=== PATIENT | female | born 1990 | race Caucasian/White ===

== ENCOUNTER → 2016-05-09 | Outpatient (CLI) | payer OTHER | LOC: M LAB 06:58 | PROVIDERS: ATTEND Obstetrics & Gynecology | DX: Z34.82 Encounter for supervision of other normal pregnancy, second trimester (principal) ==

== ENCOUNTER → 2016-05-25 | Outpatient (CLI) | payer OTHER ==
--- NOTE | 2016-05-25 19:13 | REP ---
Obstetric sonography: History: Supervision of for anatomy at 28 weeks. Findings: Scanning through the gravid uterus demonstrates a viable single intrauterine gestation in a variable lie. motion is observed and heart rate is recorded at 133 beats per minute. Closed cervical length is 2.7 cm measured transabdominally. There has been appropriate interval growth. Exam quality was inhibited to some degree by patient body habitus. The following anatomic structures are identified and felt to be sonographically unremarkable: cranium, cavum, cerebellum posterior fossa, face and profile, lungs, four-chamber heart, diaphragm, left-sided stomach, abdominal wall cord insertion, kidneys and bladder, upper and lower extremities. Biometry chart: BPD 7.0 cm = 28 weeks 1 day Head circumference 26.1 cm = 28 weeks 3 days Abdominal circumference 24.5 cm = 28 weeks 6 days. Femur length 5.1 cm = 27 weeks 1 day. Humeral length 4.8 cm = 28 weeks 3 days HC/AC ratio normal 1.06, cephalic index normal 0.74, estimated weight 1182 grams 2 pounds 9 ounces 36th percentile for 28 weeks 3 days. Impression: Viable single intrauterine gestation at 28 weeks 1 day by today's composite sonographic criteria. Expected gestational age estimate based on prior sonography is 28 weeks 3 days. EDWARDO by prior sonography 08/14/2016. Signed by Rayray Wilkinson MD 05/26/2016 09:53 A
== END ==
LOC: M RAD 15:38
PROVIDERS: ATTEND Obstetrics & Gynecology
DX: O10.012 Pre-existing essential hypertension complicating pregnancy, second trimester (principal)

== ENCOUNTER → 2016-06-15 | Outpatient (CLI) | payer OTHER ==
--- NOTE | 2016-06-15 11:04 | REP ---
Follow-up obstetric ultrasound for growth in a patient with preexisting essential hypertension. Comparison is 05/25/2016. There is a single intrauterine gestation in a vertex presentation. There is movement and cardiac activity, the heart rate is 139 - 144 beats per minute. The placenta is posterior / fundal with no previa or abruptio with grade 1 maturity. Subjectively the amniotic fluid volume is normal. The amniotic fluid index is 13.0 (8.7 - 24.0). The maternal adnexa and cul-de-sac are unremarkable. By today's measurements gestational age is 32 weeks 4 days with an EDWARDO of 08/06/2016. By the first ultrasound during this gestation gestational age is 31 weeks 3 days. By LMP 31 weeks 3 days. weight is 2065 grams (4 pounds, 8 ounces). This is the 74th percentile for 31 weeks 3 days. Umbilical artery Doppler assessment: SD ratio 2.37 (2.50 - 3.50) Resistive index 0.58 (a 0.59 - 0.75) Diastolic flow velocity 17.2 cm/sec (normal). Signed by Eric Corbin MD 06/15/2016 10:55 A
== END ==
LOC: M RAD 09:30
PROVIDERS: ATTEND Obstetrics & Gynecology
DX: O10.012 Pre-existing essential hypertension complicating pregnancy, second trimester (principal)

== ENCOUNTER → 2016-07-11 | Outpatient (CLI) | payer OTHER ==
--- NOTE | 2016-07-11 11:49 | REP ---
OB ULTRASOUND: Real-time sonographic evaluation of the gravid uterus performed. There is a single living intrauterine gestation. Estimated gestational age 35 weeks 1 day. EDC 08/14/2016. Today's measurements indicate appropriate growth. BPD 88 mm = 35 weeks 5 days, 58th percentile HC 339 mm = 38 weeks 6 days, over 95th percentile AC 328 mm = 36 weeks 5 days, 73rd percentile Femur length 66 mm = 33 weeks 6 days, 32nd percentile HC/AC ratio 1.03 within normal range. Estimated weight 2846 grams, 66th percentile. Cervix is closed and measures 3.1 cm in length. heart rate 153 beats per minute. Amniotic fluid within normal limits. ESTEPHANIA 14.0 within normal range of 7.9-24.9. S/D ratio 2.45 within normal range. RI 0.59 within normal range. SEEN/GROSSLY UNREMARKABLE Lateral ventricles Yes Posterior fossa Yes Upper lip Yes Four-chamber heart No LVOT No RVOT No Stomach Yes Cord insertion No Three vessel cord Yes Kidneys Yes Bladder Yes Spine Yes position: Vertex. Placenta: Posterior and fundal and grade 2 with no previa or abruption. Signed by Eric Lara MD 07/12/2016 04:35 P
== END ==
LOC: M RAD 09:37
PROVIDERS: ATTEND Obstetrics & Gynecology
DX: O10.012 Pre-existing essential hypertension complicating pregnancy, second trimester (principal)

== ENCOUNTER → 2016-07-13 | Outpatient (CLI) | payer OTHER ==
[2016-07-13 10:32] LABS: MEAN CORPUSCULAR HEMOGLOBIN 28.1 pg (27.0-33.0); MEAN CORPUSCULAR HGB CONC 33.5 g/dl (32.0-36.5); MEAN CORPUSCULAR VOLUME 83.8 fl (80.0-96.0); RED CELL DISTRIBUTION WIDTH 14.7 % (11.5-14.5); WHITE BLOOD COUNT 12.1 K/mm3 (4.0-10.0)
[2016-07-13 10:55] LABS: ALT/SGPT 21 U/L (12-78); AST/SGOT 20 U/L (15-37); BILIRUBIN,TOTAL 0.2 MG/DL (0.2-1.0); CREATININE FOR GFR 0.63 MG/DL (0.55-1.02); GLOMERULAR FILTRATION RATE > 60.0 (>60); URIC ACID 4.2 MG/DL (2.6-6.0)
[2016-07-13 11:21] LABS: CREATININE CLEARANCE, URINE 153.7 ML/MIN (75-115); CREATININE, SERUM 0.6 MG/DL (0.6-1.0)
== END ==
LOC: M LAB 09:56
PROVIDERS: ATTEND Obstetrics & Gynecology
DX: O10.013 Pre-existing essential hypertension complicating pregnancy, third trimester (principal)

== ENCOUNTER → 2016-07-16 | Outpatient (REF) | payer OTHER | LOC: M LAB REF 16:45 | PROVIDERS: ATTEND Specialist | DX: O10.013 Pre-existing essential hypertension complicating pregnancy, third trimester (principal) ==

== ENCOUNTER 2016-07-24 21:26 | Inpatient (IN) | payer OTHER ==
[~2016-07-24] VITALS: Ht 167.6 cm; Wt 128.0 kg
[2016-07-24 23:45] LABS: MEAN CORPUSCULAR HEMOGLOBIN 27.3 pg (27.0-33.0); MEAN CORPUSCULAR HGB CONC 32.9 g/dl (32.0-36.5); MEAN CORPUSCULAR VOLUME 82.7 fl (80.0-96.0); RED CELL DISTRIBUTION WIDTH 14.8 % (11.5-14.5); WHITE BLOOD COUNT 12.9 K/mm3 (4.0-10.0)
[2016-07-25] VITALS (47 sets, daily range): BP systolic 88–195; BP diastolic 39–94
[2016-07-25] MEDS ORDERED: EVEN1000 PO (00:25)
[2016-07-25] MEDS ORDERED: METF500T PO (00:25)
[2016-07-25] MEDS ORDERED: PRIL20CA9 PO (00:28)
[2016-07-25] MEDS ORDERED: PRENTAB9 PO (00:28)
[2016-07-25] MEDS ORDERED: TYLE500T78 PO (00:28)
[2016-07-25] MEDS ORDERED: miSOPROStol 50 MCG 1/2 TAB (S0191) PO SCH (00:30)
--- NOTE | 2016-07-25 01:07 | HPE ---
DATE OF ADMISSION: 07/24/2016 26-year-old G2, P1 female at 37-0/7 weeks gestation by last menstrual period (LMP) consistent with eight week ultrasound, estimated date of confinement (EDC) 08/14/2016, presents for labor induction to chronic hypertension. COURSE: The patient initiated care in [place]. She transferred to [place] to [facility] at 23 weeks gestation, on 04/23/2016. Her blood pressure at that visit was 142/76. She had gestational diabetes treated with metformin. She has chronic hypertension and did not require medications during . She had report of testing as well as normal ultrasounds for growth. MEDICAL HISTORY: 1. Obesity. 2. Seizure disorder. 3. Polycystic ovarian syndrome (PCOS). 4. Migraines. 5. Anxiety disorder. SURGICAL HISTORY: LEEP in 2013. ALLERGIES: Allergic to multiple anti-seizure drugs including phenobarbital, Dilantin, Tegretol, Lamictal, and Trileptal. SOCIAL HISTORY: Patient is . She quit cigarettes in 2013. She denies alcohol or drug use. FAMILY HISTORY: Noncontributory. PHYSICAL EXAMINATION: Blood pressure 138/78, weight 295 pounds. HEAD AND NECK: Normal. LUNGS: Clear to auscultation bilaterally. HEART: Regular rate and rhythm. ABDOMEN: Nontender, gravid. heart tones category one. STERILE VAGINAL EXAM: Cervix 3 cm, 80%, -2 station, vertex. EXTREMITIES: Nontender. LABS: Blood type O positive. Rubella immune. RPR nonreactive. Hepatitis B and C negative. Hemoglobin A1c 6.2.GBS negative on 07/16/2016. ASSESSMENT: 26-year-old, G2, P1 female at 37-0/7 weeks gestation with chronic hypertension and gestation diabetes. Patient is admitted for labor induction. Risks of induction were discussed.
[2016-07-25] MEDS ORDERED: LR 1,000 ML IV SCH (05:08)
[2016-07-25] MEDS ORDERED: OXYTOCIN DRIP 30 UNITS in APPROPRIATE DILUENT 1 EA IV SCH (05:15)
[2016-07-25] MEDS ORDERED: ONDANSETRON 4MG/2ML VIAL (J2405) IV ONE (08:00)
[2016-07-25] MEDS ORDERED: FENTANYL 2MCG/ML ROPIVACAINE 0.2% NACL 250 ML CADD As Ordered ONE (13:15)
[2016-07-25] MEDS ORDERED: EPIDURAL/PCA KEYS XX PRN (14:30)
[2016-07-25] MEDS ORDERED: REFRIGERATOR IV KEYS XX PRN (14:30)
[2016-07-25] MEDS ORDERED: FENTANYL/ROPIVACAINE/NACL CADD 250 ML EPIDURAL SCH (14:30)
[2016-07-25] MEDS ORDERED: diphenhydrAMINE INJ 50MG/ML VIAL (J1200) IV PRN (14:30)
[2016-07-25] MEDS ORDERED: ePHEDrine SULFATE 25 MG/5 ML(5MG/ML) SYRINGE IV PRN (14:30)
[2016-07-25] MEDS ORDERED: ONDANSETRON 4MG/2ML VIAL (J2405) IV PRN (14:30)
[2016-07-25] MEDS ORDERED: LACTATED RINGER'S 1000 ML IV PRN (14:30)
[2016-07-25] MEDS ORDERED: EPIDURAL COMMENT XX SCH (14:30)
[2016-07-25] MEDS ORDERED: NALOXONE INJ 0.4 MG/1 ML VIAL (J2310) IV PRN (14:30)
--- NOTE | 2016-07-25 23:56 | DN ---
DATE OF DELIVERY: 07/25/2016 TIME OF : 22:33 GENDER: Male APGARS: 8 and 9 WEIGHT: 3372, or 7 pounds 7 ounces ESTIMATED BLOOD LOSS: 300 mL ANESTHESIA: Epidural. LACERATIONS: None. COUNTS: 5 laparotomy sponges accounted for prior to and after delivery. DELIVERY NOTE: On 07/25/2016, at 22:33, Ms. Sainz, a 26-year-old 2, now para 2, had a spontaneous vaginal delivery of a liveborn male infant, Apgars 8 and 9, weight 3372 gram, or 7 pounds 7 ounces. Head was delivered occiput anterior (OA) over an intact perineum followed by delivery of the anterior and posterior shoulders and corpus. Infant was handed to mother with a good cry. Cord was clamped times two, was cut by the father of the baby under my direction. Cord blood was then obtained. Placenta was drained and delivered grossly intact. A premixed bag of 500 mL of normal saline with 30 units of Pitocin was bolused along with uterine massage until the uterus was firm. On inspection, the cervix, vagina, and perineum were grossly intact and hemostatic. Mother and baby recovered in stable condition. The couple decided to name their son Skyler.
[2016-07-26] MEDS ORDERED: OXYTOCIN DRIP 30 UNITS in APPROPRIATE DILUENT 1 EA IV SCH (00:54)
[2016-07-26] MEDS ORDERED: DOCUSATE SODIUM 100 MG CAP PO PRN (01:00)
[2016-07-26] MEDS ORDERED: MEASLES,MUMPS,RUBELLA VACCINE INJ (MMR-II) (90707) SC SCH (01:00)
[2016-07-26] MEDS ORDERED: DIBUCAINE 1% OINTMENT 30GM TOP PRN (01:00)
[2016-07-26] MEDS ORDERED: RHOGAM 300 MCG (1500 IU) INJ (J2790) IM SCH (01:00)
[2016-07-26] MEDS ORDERED: ACETAMINOPHEN 500 MG TAB PO PRN (01:00)
[2016-07-26] MEDS ORDERED: METHYLERGONOVINE MALEATE 0.2 MG TAB PO PRN (01:00)
[2016-07-26] MEDS ORDERED: MOM 30ML SUSPENSION UDC PO PRN (01:00)
[2016-07-26 01:45] VITALS: BP 154/61
[2016-07-26 02:00] VITALS: BP 154/61
[2016-07-26 05:41] VITALS: BP 130/72
[2016-07-26] MEDS: IBUPROFEN 800 MG TAB PO PRN ×3 (06:26→22:27)
[2016-07-26] MEDS: PRENATAL VITAMIN TAB PO SCH (08:40)
[2016-07-26 18:14] VITALS: BP 138/82
[2016-07-26] MEDS ORDERED: PERCOCET 5MG/325MG TAB PO PRN (18:15)
--- NOTE | 2016-07-26 21:29 | PAIN ---
DICTATOR STATED TO DISREGARD THIS DICTATION. DICTATION ENDED AT 0:05.
[2016-07-27 06:19] VITALS: BP 138/82
[2016-07-27] MEDS ORDERED: IBUP600T26 PO (07:30)
[2016-07-27] MEDS ORDERED: OXYC1TAB23 PO (07:30)
[2016-07-27] MEDS: PRENATAL VITAMIN TAB PO SCH (07:52)
[2016-07-27] MEDS ORDERED: ACET50TA PO (08:03)
[2016-07-27] MEDS ORDERED: IBUP-1114 PO (08:03)
[2016-07-27] MEDS ORDERED: COLA100C PO (08:04)
[2016-07-27] MEDS: IBUPROFEN 800 MG TAB PO PRN (13:40)
== END 2016-07-27 20:00 | disposition home or self-care (01) | DRG 774 ==
LOC: M LDI 21:26 → M OBS 07-26 00:53
PROVIDERS: ADMIT Specialist; ATTEND Obstetrics & Gynecology
PROC: 3E0P7GC Introduction of Other Therapeutic Substance into Female Reproductive, Via Natural or Artificial Opening (ICD-10-PCS; 2016-07-24)
PROC: 10E0XZZ Delivery of Products of Conception, External Approach (ICD-10-PCS; principal; 2016-07-25)
DX: O10.02 Pre-existing essential hypertension complicating childbirth (principal); Z68.41 Body mass index [BMI] 40.0-44.9, adult; O24.415 Gestational diabetes mellitus in pregnancy, controlled by oral hypoglycemic drugs; Z3A.37 37 weeks gestation of pregnancy; O99.214 Obesity complicating childbirth; E66.9 Obesity, unspecified; E28.2 Polycystic ovarian syndrome; O99.284 Endocrine, nutritional and metabolic diseases complicating childbirth; K21.9 Gastro-esophageal reflux disease without esophagitis; O99.62 Diseases of the digestive system complicating childbirth; Z37.0 Single live birth; Z79.84 Long term (current) use of oral hypoglycemic drugs

== ENCOUNTER → 2016-10-15 | Outpatient (CLI) | payer OTHER ==
[~2016-10-15] MED LIST: ACET50TA PO; COLA100C3 PO; EVEN1000 PO; IBUP-1114 PO; IBUP600T26 PO; METF500T PO; NAPR500T2 PO; OXYC1TAB23 PO; PRENTAB9 PO; PRIL20CA9 PO; TYLE500T78 PO
== END ==
LOC: M SMT 14:05
PROVIDERS: ATTEND Family Medicine
DX: N91.1 Secondary amenorrhea (principal)

== ENCOUNTER → 2016-10-18 | Outpatient (CLI) | payer OTHER ==
[2016-10-18 18:59] LABS: BASO # 0.1 K/mm3 (0.0-0.2); BASO % 0.8 % (0.0-1.0); EOS # 0.3 K/mm3 (0.0-0.50); EOS % 3.1 % (0.0-3.0); LARGE UNSTAINED CELL # 0.1 K/mm3 (0.0-0.4); LARGE UNSTAINED CELL % 1.2 % (0.0-4.0); LYMPH # 2.2 K/mm3 (1.5-6.5); LYMPH % 25.4 % (24.0-44.0); MEAN CORPUSCULAR HEMOGLOBIN 27.1 pg (27.0-33.0); MEAN CORPUSCULAR HGB CONC 32.7 g/dl (32.0-36.5); MEAN CORPUSCULAR VOLUME 82.8 fl (80.0-96.0); MONO # 0.5 K/mm3 (0.0-0.8); MONO % 5.5 % (0.0-5.0); NEUTROPHILS # 5.5 K/mm3 (1.8-7.7); PLATELET COUNT, AUTOMATED 370 k/mm3 (150-450); RED CELL DISTRIBUTION WIDTH 14.7 % (11.5-14.5); WHITE BLOOD COUNT 8.6 K/mm3 (4.0-10.0)
[2016-10-18 19:15] LABS: ALBUMIN 3.6 GM/DL (3.2-5.2); ALBUMIN/GLOBULIN RATIO 0.97 (1.00-1.93); ALKALINE PHOSPHATASE 154 U/L (45-117); ALT/SGPT 461 U/L (12-78); AMYLASE 420 U/L (25-115); ANION GAP 7 MEQ/L (8-16); AST/SGOT 499 U/L (15-37); BILIRUBIN,TOTAL 0.4 MG/DL (0.2-1.0); BLOOD UREA NITROGEN 11 MG/DL (7-18); CALCIUM LEVEL 9.1 MG/DL (8.5-10.1); CARBON DIOXIDE LEVEL 27 MEQ/L (21-32); CHLORIDE LEVEL 104 MEQ/L (98-107); CREATININE FOR GFR 0.67 MG/DL (0.55-1.02); GLOMERULAR FILTRATION RATE > 60.0 (>60); GLUCOSE, FASTING 137 MG/DL (70-105); POTASSIUM SERUM 4.3 MEQ/L (3.5-5.1); SODIUM LEVEL 138 MEQ/L (136-145); TOTAL PROTEIN 7.3 GM/DL (6.4-8.2)
== END ==
LOC: M SMT 14:55
PROVIDERS: ATTEND Physician Assistant Medical
DX: R10.30 Lower abdominal pain, unspecified (principal)

== ENCOUNTER 2016-10-19 12:27 | Emergency (ER) | payer OTHER ==
[~2016-10-19] VITALS: Ht 167.6 cm; Wt 126.1 kg
[~2016-10-19 12:27] MED LIST changes: -NAPR500T2 PO
[2016-10-19] MEDS ORDERED: NAPR500T2 PO (12:42)
[2016-10-19] MEDS ORDERED: NS 1,000 ML IV ONE (14:00)
[2016-10-19 14:32] LABS: BASO # 0.1 K/mm3 (0.0-0.2); BASO % 1.1 % (0.0-1.0); EOS # 0.4 K/mm3 (0.0-0.50); EOS % 3.7 % (0.0-3.0); LARGE UNSTAINED CELL # 0.1 K/mm3 (0.0-0.4); LARGE UNSTAINED CELL % 1.2 % (0.0-4.0); LYMPH # 3.6 K/mm3 (1.5-6.5); LYMPH % 31.3 % (24.0-44.0); MEAN CORPUSCULAR HEMOGLOBIN 27.4 pg (27.0-33.0); MEAN CORPUSCULAR HGB CONC 33.5 g/dl (32.0-36.5); MEAN CORPUSCULAR VOLUME 81.7 fl (80.0-96.0); MONO # 0.6 K/mm3 (0.0-0.8); MONO % 5.4 % (0.0-5.0); NEUTROPHILS # 6.3 K/mm3 (1.8-7.7); NEUTROPHILS % 57.3 % (36.0-66.0); PLATELET COUNT, AUTOMATED 378 k/mm3 (150-450); RED CELL DISTRIBUTION WIDTH 15.1 % (11.5-14.5)
[2016-10-19 15:06] LABS: ALBUMIN 3.6 GM/DL (3.2-5.2); ALBUMIN/GLOBULIN RATIO 0.84 (1.00-1.93); ALKALINE PHOSPHATASE 132 U/L (45-117); ALT/SGPT 302 U/L (12-78); AMYLASE 41 U/L (25-115); ANION GAP 7 MEQ/L (8-16); AST/SGOT 110 U/L (15-37); BILIRUBIN,DIRECT < 0.1 MG/DL (0.0-0.2); BILIRUBIN,TOTAL 0.2 MG/DL (0.2-1.0); BLOOD UREA NITROGEN 9 MG/DL (7-18); CALCIUM LEVEL 9.2 MG/DL (8.5-10.1); CARBON DIOXIDE LEVEL 25 MEQ/L (21-32); CHLORIDE LEVEL 108 MEQ/L (98-107); CREATININE FOR GFR 0.57 MG/DL (0.55-1.02); GLOMERULAR FILTRATION RATE > 60.0 (>60); GLUCOSE, FASTING 82 MG/DL (70-105); SODIUM LEVEL 140 MEQ/L (136-145); TOTAL PROTEIN 7.9 GM/DL (6.4-8.2)
[2016-10-19] MEDS ORDERED: ISOVUE-370 76% 100ML VIAL (Q9967) As Ordered ONE (15:07)
--- NOTE | 2016-10-19 16:04 | REP ---
CT ABDOMEN AND PELVIS WITH IV CONTRAST: TECHNIQUE: Axial contrast enhanced images from the lung bases to the pubic symphysis using 100 mL Isovue 370 intravenous contrast material with multiplanar reformations. Visualized lung bases are clear. The liver demonstrates diffuse fatty infiltration. There is a 5 mm gallstone in the gallbladder without definite inflammatory changes. No biliary dilatation is visualized. The spleen, adrenals, pancreas, and kidneys are unremarkable. There is no hydronephrosis. There is no abdominal aortic aneurysm. There is no adenopathy. There is no free air or free fluid. There is no bowel wall thickening. There is no evidence of appendicitis. There is no pelvic mass. Urinary bladder is not well distended and not well evaluated. IMPRESSION: Diffuse fatty infiltration of the liver. There is a 5 mm gallstone in the gallbladder. No biliary dilatation. No free air or free fluid. Pancreas appears unremarkable, but it should be noted that a negative CT of the pancreas does not exclude pancreatitis. Signed by Eric Lara MD 10/19/2016 05:26 P
[2016-10-19 16:30] VITALS: BP 138/76
== END 2016-10-19 16:33 | disposition home or self-care (01) ==
LOC: M ED 13:45
DX: K80.70 Calculus of gallbladder and bile duct without cholecystitis without obstruction (principal); G89.29 Other chronic pain; K21.9 Gastro-esophageal reflux disease without esophagitis; F99 Mental disorder, not otherwise specified; Z79.899 Other long term (current) drug therapy; Z88.8 Allergy status to other drugs, medicaments and biological substances; Z87.891 Personal history of nicotine dependence
CPT/HCPCS: 36415; 74177; 80048; 80076; 81001; 81025; 82150; 83690; 85025; 99284; Q9967

== ENCOUNTER 2016-12-26 18:35 | Emergency (ER) | payer OTHER ==
[~2016-12-26] VITALS: Ht 167.6 cm; Wt 128.2 kg
[~2016-12-26 18:35] MED LIST changes: -COLA100C3 PO; +COLA100C5 PO; +IBUP-1022 PO; -IBUP600T26 PO; -METF500T PO; +METF500T13 PO; +NAPR500T3 PO
[2016-12-26] MEDS ORDERED: ZOFR8TAB PO (18:47)
[2016-12-26] MEDS ORDERED: NS 1,000 ML IV ONE (21:00)
[2016-12-26] MEDS ORDERED: GASTROGRAFIN SOLUTION 30ML (Q9963) PO ONE ×2 (21:15→21:45)
[2016-12-26 21:37] LABS: BASO # 0.1 K/mm3 (0.0-0.2); BASO % 1.1 % (0.0-1.0); EOS # 0.3 K/mm3 (0.0-0.50); EOS % 2.3 % (0.0-3.0); LARGE UNSTAINED CELL # 0.2 K/mm3 (0.0-0.4); LARGE UNSTAINED CELL % 1.5 % (0.0-4.0); LYMPH # 4.4 K/mm3 (1.5-6.5); LYMPH % 30.6 % (24.0-44.0); MEAN CORPUSCULAR HEMOGLOBIN 27.9 pg (27.0-33.0); MEAN CORPUSCULAR HGB CONC 33.8 g/dl (32.0-36.5); MEAN CORPUSCULAR VOLUME 82.5 fl (80.0-96.0); MONO # 0.7 K/mm3 (0.0-0.8); MONO % 4.8 % (0.0-5.0); NEUTROPHILS # 8.1 K/mm3 (1.8-7.7); NEUTROPHILS % 59.7 % (36.0-66.0); PLATELET COUNT, AUTOMATED 405 k/mm3 (150-450); RED CELL DISTRIBUTION WIDTH 14.7 % (11.5-14.5); WHITE BLOOD COUNT 13.6 K/mm3 (4.0-10.0)
[2016-12-26 22:00] LABS: ALBUMIN 3.5 GM/DL (3.2-5.2); ALBUMIN/GLOBULIN RATIO 0.83 (1.00-1.93); ALKALINE PHOSPHATASE 100 U/L (45-117); ALT/SGPT 55 U/L (12-78); ANION GAP 9 MEQ/L (8-16); AST/SGOT 31 U/L (15-37); BILIRUBIN,DIRECT < 0.1 MG/DL (0.0-0.2); BILIRUBIN,TOTAL 0.2 MG/DL (0.2-1.0); BLOOD UREA NITROGEN 9 MG/DL (7-18); CALCIUM LEVEL 9.1 MG/DL (8.5-10.1); CARBON DIOXIDE LEVEL 25 MEQ/L (21-32); CHLORIDE LEVEL 106 MEQ/L (98-107); CREATININE FOR GFR 0.71 MG/DL (0.55-1.02); GLOMERULAR FILTRATION RATE > 60.0 (>60); GLUCOSE, FASTING 125 MG/DL (70-105); POTASSIUM SERUM 4.2 MEQ/L (3.5-5.1); SODIUM LEVEL 140 MEQ/L (136-145); TOTAL PROTEIN 7.7 GM/DL (6.4-8.2)
[2016-12-26 22:39] VITALS: BP 170/79
[2016-12-26] MEDS ORDERED: ISOVUE-370 76% 100ML VIAL (Q9967) As Ordered ONE (22:46)
--- NOTE | 2016-12-26 23:30 | REPUSA ---
CT of the abdomen and pelvis with contrast Clinical statement: Pain. Bloody stools. Technique: Multiple axial CT images were obtained from the base of the lungs through the floor of the pelvis utilizing 5 mm axial slices after administration of nonionic intravenous contrast. Coronal an d sagittal reconstructions were also obtained. Comparison: 10/19/2016. Findings: Chest: The visualized lung bases are clear. Abdomen: The spleen, pancreas, kidneys, and adrenal glands are unremarkable. Several small gallstones fill the gallbladder. No pericholecystic inflammatory changes are seen. The liver is enlarged, measu ring 31.5 cm. Diffuse low attenuation of the hepatic parenchyma is appreciated. The aorta is within n ormal limits. There is no evidence of abdominal lymphadenopathy or ascites. Pelvis: The bowel is unremarkable, with no obstructive or inflammatory changes. The appendix is edgar l. The urinary bladder is within normal limits. The other pelvic structures appear grossly intact. Th ere is no evidence of pelvic lymphadenopathy or ascites. Bones: There are no suspicious osseous abnormalities seen. Impression: 1. No obstructive or inflammatory bowel changes. 2. Cholelithiasis without evidence of acute cholecystitis. 3. Hepatomegaly, with diffuse fatty infiltration of the liver. 4. Overall, no significant interval change.
== END 2016-12-26 23:41 | disposition home or self-care (01) ==
LOC: M ED 18:35
DX: K64.4 Residual hemorrhoidal skin tags (principal)
CPT/HCPCS: 74177; 80048; 80076; 81025; 83690; 85025; 96360; 96361; 99284; Q9963; Q9967

== ENCOUNTER → 2016-12-27 | Outpatient (CLI) | payer OTHER ==
[~2016-12-27] MED LIST changes: +ZOFR8TAB PO
[2016-12-27 13:18] LABS: CONTROL LINE HCG INT CTR LINE PRESENT
== END ==
LOC: M SMT 10:38
PROVIDERS: ATTEND Physician Assistant Medical
DX: Z32.00 Encounter for pregnancy test, result unknown (principal)

== ENCOUNTER → 2017-05-01 | Outpatient (CLI) | payer OTHER ==
[2017-05-01 17:07] LABS: MEAN CORPUSCULAR HEMOGLOBIN 27.4 pg (27.0-33.0); MEAN CORPUSCULAR HGB CONC 32.8 g/dl (32.0-36.5); MEAN CORPUSCULAR VOLUME 83.5 fl (80.0-96.0); PLATELET COUNT, AUTOMATED 415 10^3/uL (150-450); RED CELL DISTRIBUTION WIDTH 13.8 % (11.5-14.5); WHITE BLOOD COUNT 13.1 10^3/uL (4.0-10.0)
[2017-05-01 17:19] LABS: ESTIMATED AVERAGE GLUCOSE 160 MG/DL (60-110)
[2017-05-01 19:07] LABS: PERCENT SATURATION 8.6 % (13.2-45.0); TOTAL IRON BINDING CAPACITY 428 UG/DL (250-450)
== END ==
LOC: M SMT 15:43
DX: Z00.00 Encounter for general adult medical examination without abnormal findings (principal); N92.0 Excessive and frequent menstruation with regular cycle
CPT/HCPCS: 83550

== ENCOUNTER → 2017-05-20 | Outpatient (REF) | payer OTHER | LOC: M LAB REF 19:27 | DX: Z12.4 Encounter for screening for malignant neoplasm of cervix (principal) ==

== ENCOUNTER → 2017-06-21 | Outpatient (REF) | payer OTHER | LOC: M LAB REF 15:35 | DX: J06.9 Acute upper respiratory infection, unspecified (principal) | CPT/HCPCS: 87633 ==

== ENCOUNTER → 2017-06-21 | Outpatient (CLI) | payer OTHER ==
[2017-06-21 17:42] LABS: HCG, SERUM QUANTITATIVE < 1.0 MIU/ML
== END ==
LOC: M SMT 13:03
DX: N91.1 Secondary amenorrhea (principal); J06.9 Acute upper respiratory infection, unspecified
CPT/HCPCS: 84702

== ENCOUNTER → 2017-09-18 | Outpatient (CLI) | payer OTHER ==
[2017-09-18 14:26] LABS: ESTIMATED AVERAGE GLUCOSE 177 MG/DL (60-110); HEMOGLOBIN A1c 7.8 %
== END ==
LOC: M SMT 09:50
DX: E10.65 Type 1 diabetes mellitus with hyperglycemia (principal)
CPT/HCPCS: 83036

== ENCOUNTER → 2017-10-15 | Outpatient (CLI) | payer OTHER ==
[2017-10-15 12:25] LABS: HCG, SERUM QUANTITATIVE < 1.0 MIU/ML; LUTEINIZING HORMONE 6.8 mIU/mL
[2017-10-15 12:25] LABS: PROGESTERONE 0.3 NG/ML
[2017-10-15 12:26] LABS: FOLLICLE STIMULATING HORMONE 5.6 mIU/mL
== END ==
LOC: M SMT 10:11
DX: E28.9 Ovarian dysfunction, unspecified (principal)

== ENCOUNTER → 2017-12-27 | Outpatient (CLI) | payer OTHER ==
[2017-12-27 15:12] LABS: ESTIMATED AVERAGE GLUCOSE 183 MG/DL (60-110)
== END ==
LOC: M SMT 08:18
DX: E11.9 Type 2 diabetes mellitus without complications (principal)

== ENCOUNTER → 2018-01-15 | Outpatient (REF) | payer OTHER | LOC: M LAB REF 17:14 | DX: N76.0 Acute vaginitis (principal) | CPT/HCPCS: 87186 ==

== ENCOUNTER → 2018-03-20 | Outpatient (CLI) | payer OTHER ==
[2018-03-20 14:36] LABS: CONTROL LINE HCG INT CTR LINE PRESENT; HCG, SERUM QUALITATIVE NEGATIVE (NEGATIVE)
== END ==
LOC: M SMT 09:31
DX: N92.6 Irregular menstruation, unspecified (principal)
CPT/HCPCS: 84703

== ENCOUNTER → 2018-04-06 | Outpatient (CLI) | payer OTHER ==
[2018-04-06 17:37] LABS: ALBUMIN 3.7 GM/DL (3.2-5.2); ALBUMIN/GLOBULIN RATIO 0.93 (1.00-1.93); ALKALINE PHOSPHATASE 101 U/L (45-117); ALT/SGPT 56 U/L (12-78); ANION GAP 8 MEQ/L (8-16); AST/SGOT 30 U/L (7-37); BILIRUBIN,TOTAL 0.2 MG/DL (0.2-1.0); BLOOD UREA NITROGEN 8 MG/DL (7-18); CALCIUM LEVEL 8.9 MG/DL (8.5-10.1); CARBON DIOXIDE LEVEL 27 MEQ/L (21-32); CHLORIDE LEVEL 106 MEQ/L (98-107); CREATININE FOR GFR 0.73 MG/DL (0.55-1.30); GLOMERULAR FILTRATION RATE > 60.0 (>60); GLUCOSE, FASTING 101 MG/DL (70-100); POTASSIUM SERUM 4.3 MEQ/L (3.5-5.1); SODIUM LEVEL 141 MEQ/L (136-145); TOTAL PROTEIN 7.7 GM/DL (6.4-8.2)
[2018-04-06 17:40] LABS: ESTIMATED AVERAGE GLUCOSE 166 MG/DL (60-110); HEMOGLOBIN A1c 7.4 %
== END ==
LOC: M WUC 15:11
DX: E11.65 Type 2 diabetes mellitus with hyperglycemia (principal)
CPT/HCPCS: 80053

== ENCOUNTER → 2018-06-10 | Outpatient (REF) | payer OTHER ==
[~2018-06-10] MED LIST changes: -ACET50TA PO; +MAPA500T2 PO; +NAPR-885 PO; -NAPR500T3 PO; -ZOFR8TAB PO; +ZOFR8TAB24 PO
== END ==
LOC: M LAB REF 17:05
PROVIDERS: ATTEND Physician Assistant
DX: N76.0 Acute vaginitis (principal)

== ENCOUNTER → 2018-06-17 | Outpatient (REF) | payer OTHER | LOC: M SFHCLERA 18:41 | PROVIDERS: ATTEND Physician Assistant | DX: R50.9 Fever, unspecified (principal) ==

== ENCOUNTER → 2018-07-21 | Outpatient (CLI) | payer OTHER ==
[2018-07-21 20:43] LABS: BLOOD UREA NITROGEN 11 MG/DL (7-18); CALCIUM LEVEL 8.6 MG/DL (8.5-10.1); CARBON DIOXIDE LEVEL 24 MEQ/L (21-32); CHLORIDE LEVEL 105 MEQ/L (98-107); CHOLESTEROL LEVEL 212 MG/DL (<200); CHOLESTEROL RISK RATIO 7.066 (<5); CREATININE FOR GFR 0.82 MG/DL (0.55-1.30); FREE T4 1.09 NG/DL (0.76-1.46); GLOMERULAR FILTRATION RATE > 60.0 (>60); GLUCOSE, FASTING 157 MG/DL (70-100); HDL CHOLESTEROL 30 MG/DL (>40); NON-HDL-C 182 MG/DL; POTASSIUM SERUM 4.3 MEQ/L (3.5-5.1); SODIUM LEVEL 137 MEQ/L (136-145); TRIGLYCERIDES LEVEL 689 MG/DL (<150)
[2018-07-21 20:50] LABS: HEMOGLOBIN A1c 7.5 %
== END ==
LOC: M LRY 15:30
PROVIDERS: ATTEND Physician Assistant
DX: Z00.00 Encounter for general adult medical examination without abnormal findings (principal); E11.65 Type 2 diabetes mellitus with hyperglycemia; E66.01 Morbid (severe) obesity due to excess calories

== ENCOUNTER → 2018-08-05 | Outpatient (CLI) | payer OTHER ==
[2018-08-05 20:23] LABS: HCG, SERUM QUANTITATIVE < 1.0 MIU/ML
[2018-08-05 20:30] LABS: PROGESTERONE 0.34 NG/ML
== END ==
LOC: M LRY 19:07
PROVIDERS: ATTEND Obstetrics & Gynecology Reproductive Endocrinology
DX: Z32.00 Encounter for pregnancy test, result unknown (principal); Z3A.00 Weeks of gestation of pregnancy not specified

== ENCOUNTER → 2018-08-08 | Outpatient (CLI) | payer OTHER ==
[2018-08-08 08:20] LABS: HCG, SERUM QUANTITATIVE < 1.0 MIU/ML
--- NOTE | 2018-08-08 08:48 | REP ---
Transvaginal pelvic sonography: History: infertility. Follicle study. Findings: Uterine dimensions today are normal at 7.9 x 3.1 x 4.8 cm. Endometrial stripe is 0.4 cm thick. There is a tiny echogenic focus in the posterior myometrium 3 mm in size. No free fluid. Right ovarian dimensions are 4.0 x 4.2 x 3.9 cm. There are no follicles over a centimeter in within the right ovary. There is a complex cyst at the right ovary 3.3 x 2.8 x 2.3 cm in overall dimension. In addition, the right ovary contains 10 cysts or follicles ranging in size from 0.3-0.9 cm. The left ovaries dimensions are 4.4 x 3.3 x 1/2 cm. There are two follicles in the left ovary measuring 2.8 x 2.1 and 1.1 x 0.7 cm. In addition, the left ovary contains 25 follicles ranging in size from 0.3-0.9 cm. Impression: Ovarian follicle study as above. Electronically Signed by Rayray Wilkinson MD 08/08/2018 08:40 A
[2018-08-08 09:36] LABS: ESTRADIOL 33.5 PG/ML; FOLLICLE STIMULATING HORMONE 5.4 mIU/mL; LUTEINIZING HORMONE 4.7 mIU/mL; PROGESTERONE 0.29 NG/ML
== END ==
LOC: M RAD 07:14
PROVIDERS: ATTEND Obstetrics & Gynecology Reproductive Endocrinology
DX: N83.201 Unspecified ovarian cyst, right side (principal)

== ENCOUNTER → 2018-08-15 | Outpatient (CLI) | payer OTHER ==
[2018-08-15 20:39] LABS: HCG, SERUM QUANTITATIVE < 1.0 MIU/ML
[2018-08-15 20:49] LABS: PROGESTERONE 0.21 NG/ML
== END ==
LOC: M LRY 17:58
PROVIDERS: ATTEND Obstetrics & Gynecology Reproductive Endocrinology
DX: Z32.00 Encounter for pregnancy test, result unknown (principal); Z3A.00 Weeks of gestation of pregnancy not specified

== ENCOUNTER → 2018-09-01 | Outpatient (CLI) | payer OTHER ==
[2018-09-01 11:57] LABS: HCG, SERUM QUANTITATIVE < 1.0 MIU/ML
[2018-09-01 12:04] LABS: PROGESTERONE 0.55 NG/ML
== END ==
LOC: M LRY 09:29
PROVIDERS: ATTEND Obstetrics & Gynecology Reproductive Endocrinology
DX: Z32.00 Encounter for pregnancy test, result unknown (principal); Z3A.00 Weeks of gestation of pregnancy not specified

== ENCOUNTER → 2018-09-02 | Outpatient (CLI) | payer OTHER ==
--- NOTE | 2018-09-03 07:21 | REP ---
CHEST, TWO VIEWS: Two views of the chest are performed. There may be some mild patchy infiltrate in the right lower lobe. Left lung appears clear. The heart is normal in size. Mediastinal silhouette is unremarkable. IMPRESSION: Possible mild patchy right lower lobe infiltrate. Electronically Signed by Eric Lara MD 09/03/2018 04:55 P
== END ==
LOC: M LRY 19:39
PROVIDERS: ATTEND Physician Assistant
DX: R05 Cough (principal); R06.02 Shortness of breath
CPT/HCPCS: 71046; 87070; 94640; G0463

== ENCOUNTER → 2018-09-03 | Outpatient (CLI) | payer OTHER ==
[2018-09-03 11:38] LABS: HCG, SERUM QUANTITATIVE < 1.0 MIU/ML
[2018-09-03 11:51] LABS: PROGESTERONE 0.21 NG/ML
== END ==
LOC: M LRY 09:38
PROVIDERS: ATTEND Obstetrics & Gynecology Reproductive Endocrinology
DX: Z32.00 Encounter for pregnancy test, result unknown (principal); Z3A.00 Weeks of gestation of pregnancy not specified

== ENCOUNTER → 2018-09-17 | Outpatient (CLI) | payer OTHER ==
[2018-09-17 16:56] LABS: HCG, SERUM QUANTITATIVE < 1.0 MIU/ML
[2018-09-17 17:05] LABS: PROGESTERONE 0.77 NG/ML
== END ==
LOC: M LRY 13:18
PROVIDERS: ATTEND Obstetrics & Gynecology Reproductive Endocrinology
DX: Z32.00 Encounter for pregnancy test, result unknown (principal); Z3A.00 Weeks of gestation of pregnancy not specified

== ENCOUNTER → 2018-10-03 | Outpatient (CLI) | payer OTHER ==
[2018-10-03 17:03] LABS: HCG, SERUM QUANTITATIVE < 1.0 MIU/ML
[2018-10-03 17:10] LABS: PROGESTERONE 0.21 NG/ML
== END ==
LOC: M LRY 12:38
PROVIDERS: ATTEND Obstetrics & Gynecology Reproductive Endocrinology
DX: Z32.00 Encounter for pregnancy test, result unknown (principal)

== ENCOUNTER → 2018-10-09 | Outpatient (CLI) | payer OTHER ==
[2018-10-09 12:17] LABS: HCG, SERUM QUANTITATIVE < 1.0 MIU/ML
[2018-10-09 12:24] LABS: PROGESTERONE 0.21 NG/ML
== END ==
LOC: M LRY 10:13
PROVIDERS: ATTEND Obstetrics & Gynecology Reproductive Endocrinology
DX: Z32.00 Encounter for pregnancy test, result unknown (principal); Z3A.00 Weeks of gestation of pregnancy not specified

== ENCOUNTER → 2018-10-15 | Outpatient (CLI) | payer OTHER ==
[2018-10-15 12:37] LABS: HCG, SERUM QUANTITATIVE < 1.0 MIU/ML
[2018-10-15 12:45] LABS: PROGESTERONE 0.21 NG/ML
== END ==
LOC: M LRY 10:32
PROVIDERS: ATTEND Obstetrics & Gynecology Reproductive Endocrinology
DX: Z32.00 Encounter for pregnancy test, result unknown (principal)

== ENCOUNTER → 2018-10-21 | Outpatient (REF) | payer OTHER | LOC: M SFHCLERA 10:46 | PROVIDERS: ATTEND Physician Assistant | DX: J02.9 Acute pharyngitis, unspecified (principal) ==

== ENCOUNTER → 2018-10-28 | Outpatient (CLI) | payer OTHER ==
[~2018-10-28] MED LIST changes: +IBUP80TA PO; +LANTINJ4 SC; +PREN29TA4 PO; +TYLETAB14 PO
[2018-10-28 12:09] LABS: BLOOD UREA NITROGEN 9 MG/DL (7-18); CARBON DIOXIDE LEVEL 26 MEQ/L (21-32); CHLORIDE LEVEL 105 MEQ/L (98-107); CREATININE FOR GFR 0.56 MG/DL (0.55-1.30); GLOMERULAR FILTRATION RATE > 60.0 (>60); GLUCOSE, FASTING 103 MG/DL (70-100); POTASSIUM SERUM 4.3 MEQ/L (3.5-5.1); SODIUM LEVEL 138 MEQ/L (136-145)
[2018-10-28 14:22] LABS: HEMOGLOBIN A1c 7.9 %
== END ==
LOC: M LRY 09:57
PROVIDERS: ATTEND Family Medicine
DX: E11.65 Type 2 diabetes mellitus with hyperglycemia (principal)

== ENCOUNTER → 2018-10-30 | Outpatient (CLI) | payer OTHER ==
[2018-10-30 16:14] LABS: HCG, SERUM QUANTITATIVE < 1.0 MIU/ML
[2018-10-30 16:27] LABS: PROGESTERONE 0.21 NG/ML
== END ==
LOC: M LRY 10:26
PROVIDERS: ATTEND Obstetrics & Gynecology Reproductive Endocrinology
DX: Z32.00 Encounter for pregnancy test, result unknown (principal); Z3A.00 Weeks of gestation of pregnancy not specified

== ENCOUNTER → 2018-11-03 | Outpatient (CLI) | payer OTHER ==
[2018-11-03 17:54] LABS: HCG, SERUM QUANTITATIVE < 1.0 MIU/ML
[2018-11-03 18:02] LABS: PROGESTERONE 0.21 NG/ML
== END ==
LOC: M LRY 14:52
PROVIDERS: ATTEND Obstetrics & Gynecology Reproductive Endocrinology
DX: Z32.00 Encounter for pregnancy test, result unknown (principal); Z3A.00 Weeks of gestation of pregnancy not specified

== ENCOUNTER → 2018-12-09 | Outpatient (CLI) | payer OTHER ==
[2018-12-09 13:31] LABS: PROGESTERONE 0.21 NG/ML
== END ==
LOC: M LRY 09:17
PROVIDERS: ATTEND Obstetrics & Gynecology Reproductive Endocrinology
DX: Z32.00 Encounter for pregnancy test, result unknown (principal)

== ENCOUNTER → 2018-12-11 | Outpatient (CLI) | payer OTHER ==
[2018-12-11 14:29] LABS: ESTRADIOL 58.2 PG/ML; PROGESTERONE 0.21 NG/ML
== END ==
LOC: M LRY 10:17
PROVIDERS: ATTEND Obstetrics & Gynecology Reproductive Endocrinology
DX: E28.9 Ovarian dysfunction, unspecified (principal)

== ENCOUNTER → 2018-12-18 | Outpatient (CLI) | payer OTHER ==
[2018-12-18 12:15] LABS: TOTAL 25(OH) VITAMIN D 27.4 NG/ML (30.0-100.0)
== END ==
LOC: M LAB 10:58
PROVIDERS: ATTEND Obstetrics & Gynecology Reproductive Endocrinology
DX: P02.1 Newborn affected by other forms of placental separation and hemorrhage (principal)

== ENCOUNTER → 2018-12-22 | Outpatient (CLI) | payer OTHER ==
[2018-12-22 10:16] LABS: THYROID STIMULATING HORMONE 2.46 uIU/ML (0.358-3.740)
[2018-12-22 10:58] LABS: ESTRADIOL 92.3 PG/ML; LUTEINIZING HORMONE 7.7 mIU/mL; PROGESTERONE 0.44 NG/ML
[2018-12-22 10:59] LABS: FOLLICLE STIMULATING HORMONE 5.3 mIU/mL
--- NOTE | 2018-12-22 12:44 | REP ---
Emergency first trimester obstetric SONOGRAPHY: HISTORY: Rule out ectopic intensity FINDINGS: Transabdominal and transvaginal scanning are performed. Uterine dimensions are 8.4 x 5.0 x 3.9 cm. Endometrium is 1.3 cm thick. No intrauterine gestation is seen. No free fluid is noted in the cul-de-sac. Morphologically normal ovaries are seen bilaterally. Right ovarian dimensions are 4.6 x 2.6 x 3.7 cm. Left ovary measures 3.8 x 3.1 x 3.1 cm. Doppler flow is normal to both ovaries. Resistive indices are 0.59 on the right and 0.47 on the left. IMPRESSION: Empty uterus. No adnexal mass or free fluid. Normal ovaries. Electronically Signed by Rayray Wilkinson MD 12/22/2018 03:11 P
== END ==
LOC: M RAD 08:26
PROVIDERS: ATTEND Obstetrics & Gynecology Reproductive Endocrinology
DX: E28.9 Ovarian dysfunction, unspecified (principal)

== ENCOUNTER → 2018-12-26 | Outpatient (CLI) | payer OTHER | LOC: M LRY 09:59 | PROVIDERS: ATTEND Obstetrics & Gynecology Reproductive Endocrinology | DX: O00.90 Unspecified ectopic pregnancy without intrauterine pregnancy (principal) ==

== ENCOUNTER → 2018-12-29 | Outpatient (CLI) | payer OTHER | LOC: M LRY 10:50 | PROVIDERS: ATTEND Obstetrics & Gynecology Reproductive Endocrinology | DX: O02.1 Missed abortion (principal); Z3A.00 Weeks of gestation of pregnancy not specified ==

== ENCOUNTER → 2019-01-02 | Outpatient (CLI) | payer OTHER ==
[2019-01-02 12:41] LABS: PROGESTERONE 0.29 NG/ML
== END ==
LOC: M LRY 09:59
PROVIDERS: ATTEND Obstetrics & Gynecology Reproductive Endocrinology
DX: E28.9 Ovarian dysfunction, unspecified (principal)

== ENCOUNTER → 2019-01-09 | Outpatient (REF) | payer OTHER | LOC: M LRY 13:57 | PROVIDERS: ATTEND Obstetrics & Gynecology Reproductive Endocrinology | DX: E28.9 Ovarian dysfunction, unspecified (principal) ==

== ENCOUNTER → 2019-01-13 | Outpatient (CLI) | payer OTHER | LOC: M LRY 09:11 | PROVIDERS: ATTEND Obstetrics & Gynecology Reproductive Endocrinology | DX: O02.1 Missed abortion (principal) ==

== ENCOUNTER → 2019-01-30 | Outpatient (CLI) | payer OTHER | LOC: M LRY 17:20 | PROVIDERS: ATTEND Obstetrics & Gynecology Reproductive Endocrinology | DX: E28.9 Ovarian dysfunction, unspecified (principal) ==

== ENCOUNTER → 2019-02-05 | Outpatient (CLI) | payer OTHER ==
--- NOTE | 2019-02-05 16:53 | REP ---
RIGHT SHOULDER, FIVE VIEWS: There is no evidence of an acute fracture, dislocation or intrinsic bone disease. IMPRESSION: No fracture or dislocation. Electronically Signed by Eric Lraa MD 02/05/2019 06:07 P
== END ==
LOC: M LRY 15:27
PROVIDERS: ATTEND Physician Assistant
DX: S49.91XA Unspecified injury of right shoulder and upper arm, initial encounter (principal); X50.0XXA Overexertion from strenuous movement or load, initial encounter; Y92.9 Unspecified place or not applicable
CPT/HCPCS: 73030; 96372; G0463; J1885

== ENCOUNTER → 2019-06-22 | Outpatient (CLI) | payer OTHER ==
[2019-06-22 18:44] LABS: HCG, SERUM QUALITATIVE NEGATIVE (NEGATIVE)
== END ==
LOC: M LAB 17:05
PROVIDERS: ATTEND Advanced Practice Midwife
DX: N92.6 Irregular menstruation, unspecified (principal)

== ENCOUNTER → 2019-06-30 | Outpatient (REF) | payer OTHER | LOC: M SFHCLERA 18:34 | PROVIDERS: ATTEND Nurse Practitioner Family | DX: N89.8 Other specified noninflammatory disorders of vagina (principal) | CPT/HCPCS: 81002; 81025; 87086; G0463 ==

== ENCOUNTER → 2021-05-03 | Outpatient (REF) | payer OTHER | LOC: M WUC 19:17 | PROVIDERS: ATTEND Nurse Practitioner Family | DX: R30.0 Dysuria (principal) ==

== ENCOUNTER 2021-07-01 16:29 | Emergency (ER) | payer OTHER ==
[~2021-07-01] VITALS: Ht 167.6 cm; Wt 123.1 kg
[2021-07-01] MEDS ORDERED: AMPH1CAP5 (16:39)
[2021-07-01] MEDS ORDERED: AMPH1CAP16 (16:39)
[2021-07-01] MEDS ORDERED: SYNT25TA (16:39)
[2021-07-01 17:35] LABS: BASO # 0.1 10^3/uL (0.0-0.2); BASO % 0.5 % (0.0-1.0); EOS # 0.2 10^3/uL (0.0-0.5); EOS % 1.3 % (0.0-3.0); HEMATOCRIT 37.2 % (36.0-47.0); HEMOGLOBIN 12.1 g/dl (12.0-15.5); LYMPH # 3.8 10^3/uL (1.5-5.0); LYMPH % 26.3 % (24.0-44.0); MEAN CORPUSCULAR HGB CONC 32.5 g/dl (32.0-36.5); MONO # 0.7 10^3/uL (0.0-0.8); MONO % 5.2 % (2.0-8.0); NEUTROPHILS # 9.5 10^3/uL (1.5-8.5); NEUTROPHILS % 66.3 % (36.0-66.0); PLATELET COUNT, AUTOMATED 408 10^3/uL (150-450); RED BLOOD COUNT 4.48 10^6/uL (4.00-5.40); WHITE BLOOD COUNT 14.3 10^3/uL (4.0-10.0)
[2021-07-01] MEDS ORDERED: ONDANSETRON 4 MG ORAL DISINTEGRATING TAB PO ONE (17:40)
[2021-07-01 17:50] LABS: BLOOD UREA NITROGEN 8 MG/DL (7-18); CALCIUM LEVEL 9.1 MG/DL (8.5-10.1); CARBON DIOXIDE LEVEL 24 MEQ/L (21-32); CHLORIDE LEVEL 109 MEQ/L (98-107); GLOMERULAR FILTRATION RATE > 60.0 (>60); GLUCOSE, FASTING 154 MG/DL (70-100); POTASSIUM SERUM 3.7 MEQ/L (3.5-5.1); SODIUM LEVEL 140 MEQ/L (136-145)
[2021-07-01] MEDS ORDERED: ACETAMINOPHEN 500 MG TAB PO ONE (18:35)
[2021-07-01 19:29] VITALS: BP 148/70
[2021-07-01] MEDS ORDERED: ONDA4TAB6 PO (20:00)
== END 2021-07-01 20:07 | disposition home or self-care (01) ==
LOC: M ED 16:29
DX: S16.1XXA Strain of muscle, fascia and tendon at neck level, initial encounter (principal); V49.49XA Driver injured in collision with other motor vehicles in traffic accident, initial encounter; Y92.410 Unspecified street and highway as the place of occurrence of the external cause; M54.9 Dorsalgia, unspecified; Z32.01 Encounter for pregnancy test, result positive; Z3A.01 Less than 8 weeks gestation of pregnancy; E11.9 Type 2 diabetes mellitus without complications; M51.9 Unspecified thoracic, thoracolumbar and lumbosacral intervertebral disc disorder; E28.2 Polycystic ovarian syndrome; F33.9 Major depressive disorder, recurrent, unspecified; F41.9 Anxiety disorder, unspecified; F43.20 Adjustment disorder, unspecified; F90.9 Attention-deficit hyperactivity disorder, unspecified type; G40.909 Epilepsy, unspecified, not intractable, without status epilepticus; Z85.41 Personal history of malignant neoplasm of cervix uteri; Z88.5 Allergy status to narcotic agent; Z88.8 Allergy status to other drugs, medicaments and biological substances; Z77.098 Contact with and (suspected) exposure to other hazardous, chiefly nonmedicinal, chemicals; Z79.899 Other long term (current) drug therapy; Z79.890 Hormone replacement therapy; Z79.4 Long term (current) use of insulin
CPT/HCPCS: 36415; 70450; 72125; 76705; 76801; 80048; 84702; 85025; 99284; Q0162

== ENCOUNTER → 2021-07-28 | Outpatient (CLI) | payer OTHER ==
[~2021-07-28] MED LIST changes: +AMPH1CAP16; +AMPH1CAP5; +ONDA4TAB6 PO; +SYNT25TA
[2021-07-28 15:18] LABS: HEMATOCRIT 38.7 % (36.0-47.0); HEMOGLOBIN 12.7 g/dl (12.0-15.5); MEAN CORPUSCULAR HEMOGLOBIN 27.7 pg (27.0-33.0); MEAN CORPUSCULAR HGB CONC 32.8 g/dl (32.0-36.5); MEAN CORPUSCULAR VOLUME 84.3 fl (80.0-96.0); PLATELET COUNT, AUTOMATED 400 10^3/uL (150-450); RED BLOOD COUNT 4.59 10^6/uL (4.00-5.40); WHITE BLOOD COUNT 16.3 10^3/uL (4.0-10.0)
[2021-07-28 15:39] LABS: TOTAL PROTEIN,RANDOM URINE 16.9 MG/DL (0.0-12.0)
[2021-07-28 15:43] LABS: ALT/SGPT 26 U/L (12-78); BILIRUBIN,TOTAL 0.2 MG/DL (0.2-1.0); CREATININE FOR GFR 0.52 MG/DL (0.55-1.30); GLOMERULAR FILTRATION RATE > 60.0 (>60); LDH LACTATE DEHYDROGENASE 135 U/L (84-246); URIC ACID 4.2 MG/DL (2.6-6.0)
[2021-07-28 15:46] LABS: HEMOGLOBIN A1c 6.6 %
[2021-07-28 17:12] LABS: GC DNA AMPLIFICATION NEGATIVE (NEGATIVE)
[2021-07-28 19:23] LABS: HEPATITIS C VIRUS ABY INDEX 0.2 INDEX (<0.8); HIV 1&2 SCREEN CENTAUR NEGATIVE (NEGATIVE)
== END ==
LOC: M PLALAB 12:54
PROVIDERS: ATTEND Obstetrics & Gynecology
DX: O16.9 Unspecified maternal hypertension, unspecified trimester (principal); Z3A.00 Weeks of gestation of pregnancy not specified

== ENCOUNTER → 2021-08-15 | Outpatient (CLI) | payer OTHER | LOC: M PLALAB 13:11 | PROVIDERS: ATTEND Obstetrics & Gynecology | DX: O16.9 Unspecified maternal hypertension, unspecified trimester (principal) ==

== ENCOUNTER → 2021-10-06 | Outpatient (CLI) | payer OTHER | LOC: M WHC 13:13 | PROVIDERS: ATTEND Obstetrics & Gynecology | DX: O24.111 Pre-existing type 2 diabetes mellitus, in pregnancy, first trimester (principal); Z36.2 Encounter for other antenatal screening follow-up; Z3A.19 19 weeks gestation of pregnancy ==

== ENCOUNTER → 2021-10-24 | Outpatient (CLI) | payer OTHER ==
[2021-10-24 16:06] LABS: HEMOGLOBIN A1c 6.3 %
== END ==
LOC: M PLALAB 10:44
PROVIDERS: ATTEND Advanced Practice Midwife
DX: O24.312 Unspecified pre-existing diabetes mellitus in pregnancy, second trimester (principal)

== ENCOUNTER 2021-11-02 16:14 | Outpatient (CLI) | payer OTHER ==
[~2021-11-02] VITALS: Ht 167.6 cm; Wt 121.9 kg
[~2021-11-02 16:14] MED LIST changes: -ACET-897 PO; -LABE200T3 PO; -NOVOINJ12 SC; -PROM200C5 PV
[2021-11-02 16:30] VITALS: BP 129/74
[2021-11-02] MEDS ORDERED: BETAMETHASONE SOLUSPAN 6MG/ML 5ML VIAL (J0702 PER 3MG) IM SCH (16:35)
[2021-11-02] MEDS ORDERED: LABE200T3 PO (16:55)
[2021-11-02] MEDS ORDERED: ACET-897 PO (16:55)
[2021-11-02] MEDS ORDERED: PRENTAB9 PO (16:55)
[2021-11-02] MEDS ORDERED: HOME MED LIST COMPLETE! XX SCH (17:00)
[2021-11-02] MEDS ORDERED: NOVOINJ12 SC (17:24)
[2021-11-03] MEDS ORDERED: PROG200C22 PV (18:14)
== END 2021-11-02 17:35 | disposition home or self-care (01) ==
LOC: M LDO 16:14
PROVIDERS: ATTEND Advanced Practice Midwife
DX: O24.012 Pre-existing type 1 diabetes mellitus, in pregnancy, second trimester (principal); O10.912 Unspecified pre-existing hypertension complicating pregnancy, second trimester; Z03.75 Encounter for suspected cervical shortening ruled out; Z3A.22 22 weeks gestation of pregnancy
CPT/HCPCS: 96372; G0463; J0702

== ENCOUNTER → 2021-11-02 | Outpatient (CLI) | payer OTHER ==
[~2021-11-02] MED LIST changes: +ACET-897 PO; +LABE200T3 PO; +NOVOINJ12 SC; +PROM200C5 PV
== END ==
LOC: M RAD 14:26
PROVIDERS: ATTEND Obstetrics & Gynecology
DX: Z36.2 Encounter for other antenatal screening follow-up (principal); O24.312 Unspecified pre-existing diabetes mellitus in pregnancy, second trimester; Z3A.22 22 weeks gestation of pregnancy

== ENCOUNTER 2021-11-03 17:07 | Outpatient (CLI) | payer OTHER ==
[~2021-11-03] VITALS: Ht 167.6 cm; Wt 121.0 kg
[~2021-11-03 17:07] MED LIST changes: +ACET-897 PO; +LABE200T3 PO; +NOVOINJ12 SC
[2021-11-03] MEDS ORDERED: BETAMETHASONE SOLUSPAN 6MG/ML 5ML VIAL (J0702 PER 3MG) IM ONE (17:15)
[2021-11-03 17:31] VITALS: BP 113/56
[2021-11-03] MEDS ORDERED: PROG200C22 PV (18:14)
== END 2021-11-03 18:23 | disposition home or self-care (01) ==
LOC: M LDO 17:07
PROVIDERS: ATTEND Obstetrics & Gynecology
DX: O24.012 Pre-existing type 1 diabetes mellitus, in pregnancy, second trimester (principal); O10.912 Unspecified pre-existing hypertension complicating pregnancy, second trimester; Z03.75 Encounter for suspected cervical shortening ruled out; Z3A.22 22 weeks gestation of pregnancy
CPT/HCPCS: 96372; G0378; G0463; J0702

== ENCOUNTER → 2021-11-28 | Outpatient (CLI) | payer OTHER ==
[~2021-11-28] MED LIST changes: +PROG200C22 PV
== END ==
LOC: M RAD 14:45
PROVIDERS: ATTEND Obstetrics & Gynecology
DX: Z36.2 Encounter for other antenatal screening follow-up (principal); Z3A.26 26 weeks gestation of pregnancy

== ENCOUNTER 2021-12-06 20:02 | Inpatient (IN) | payer OTHER ==
[~2021-12-06] VITALS: Ht 167.6 cm; Wt 124.0 kg
[~2021-12-06 20:02] MED LIST changes: -LABE200T3 PO; +LABE200T5 PO
[2021-12-06] MEDS ORDERED: LACTATED RINGER'S 1000 ML IV STA (20:16)
[2021-12-06] MEDS ORDERED: PENICILLIN G POTASSIUM IV 5 MU in D5W MINI-BAG PLUS 100 ML IV STA (20:16)
[2021-12-06] MEDS ORDERED: CARBOPROST TROMETHAMINE 250 MCG/ML AMP IM PRN (20:20)
[2021-12-06] MEDS ORDERED: OXYTOCIN INJ 10 UNITS/ML VIAL (J2590) IM PRN (20:20)
[2021-12-06] MEDS ORDERED: MAG Sulf (L&D) 4 GM/100 ML 4 GM in IV 1 EA IV ONE (20:20)
[2021-12-06] MEDS ORDERED: LIDOCAINE 1% MDV 20ML VIAL INFIL PRN (20:20)
[2021-12-06] MEDS ORDERED: BETAMETHASONE SOLUSPAN 6MG/ML 5ML VIAL (J0702 PER 3MG) IM SCH (20:20)
[2021-12-06] MEDS ORDERED: OXYTOCIN DRIP 30 UNITS in IV 1 EA IV PRN ×4 (20:20)
[2021-12-06] MEDS ORDERED: TRANEXAMIC ACID INJection 1,000 MG in NS 100 ML IV PRN (20:20)
[2021-12-06] MEDS ORDERED: MAGNESIUM SULFATE 4% INJ 20GM/500ML (40MG/ML) As Ordered ONE (20:29)
[2021-12-06] MEDS ORDERED: MAGNESIUM *L&D* 4GM/100ML BAG (40MG/ML) As Ordered ONE (20:29)
[2021-12-06 20:33] LABS: HEMATOCRIT 32.6 % (36.0-47.0); HEMOGLOBIN 10.8 g/dl (12.0-15.5); MEAN CORPUSCULAR HEMOGLOBIN 27.7 pg (27.0-33.0); MEAN CORPUSCULAR HGB CONC 33.1 g/dl (32.0-36.5); MEAN CORPUSCULAR VOLUME 83.6 fl (80.0-96.0); PLATELET COUNT, AUTOMATED 338 10^3/uL (150-450); WHITE BLOOD COUNT 20.7 10^3/uL (4.0-10.0)
[2021-12-06] MEDS ORDERED: MAG Sulf (OBGYN) 20GM/500ML 20,000 MG in IV 1 EA IV SCH (20:40)
[2021-12-06] MEDS ORDERED: AZITHROMYCIN INJ 500MG VIAL As Ordered ONE (20:55)
[2021-12-06] MEDS ORDERED: ceFAZolin 1GM VIAL (J0690 PER 500MG) As Ordered ONE (20:59)
[2021-12-06] MEDS ORDERED: ceFAZolin 2 GM/D5W 50 ML IV BAG (J0690 PER 500MG) As Ordered ONE (20:59)
[2021-12-06] MEDS: DOCUSATE SODIUM 100MG CAPSULE PO SCH (21:00)
[2021-12-06] MEDS ORDERED: ceFAZolin SOD 3 GM IV Place Holder IV ONE (21:00)
[2021-12-06] MEDS ORDERED: ONDANSETRON 4MG 2ML VIAL IV PRN ×2 (21:00→22:20)
[2021-12-06] MEDS: LABETALOL 200 MG TAB PO SCH (21:00)
[2021-12-06] MEDS ORDERED: RHOGAM 300 MCG (1500 IU) INJ (J2790) IM SCH (21:00)
[2021-12-06] MEDS ORDERED: MOM 30ML SUSPENSION UDC PO PRN (21:00)
[2021-12-06] MEDS ORDERED: BICITRA 30ML SOLN UDC PO ONE (21:00)
[2021-12-06] MEDS ORDERED: AZITHROMYCIN INJ 500 MG, VIAL MATE ADAPTER 1 EACH in NS 250 ML IV ONE (21:00)
[2021-12-06] MEDS ORDERED: LR 1,000 ML IV SCH ×2 (21:00→22:20)
[2021-12-06] MEDS: OXYTOCIN DRIP 30 UNITS in IV 1 EA IV SCH (21:00)
[2021-12-06] MEDS ORDERED: SIMETHICONE 80MG CHEW TAB PO PRN (21:00)
[2021-12-06] MEDS ORDERED: ceFAZolin SOD 2 GM in IV 1 EA IV ONE (21:05)
[2021-12-06] MEDS ORDERED: ceFAZolin SOD 1 GM in D5W MINI-BAG PLUS 50 ML IV ONE (21:05)
[2021-12-06] MEDS ORDERED: propofoL 200 MG/20 ML VIAL As Ordered ONE (21:25)
[2021-12-06] MEDS ORDERED: OXYTOCIN 30 UNITS IN 0.9% NaCl 500ML IV BAG (J2590) As Ordered ONE (21:25)
[2021-12-06] MEDS ORDERED: ONDANSETRON 4MG 2ML VIAL As Ordered ONE (21:25)
[2021-12-06] MEDS ORDERED: ROCURONIUM BROMIDE 50 MG/5 ML VIAL As Ordered ONE ×2 (21:25→21:38)
[2021-12-06] MEDS ORDERED: MORPHINE PRES-FREE INJ 10 MG/10 ML VIAL As Ordered ONE (21:25)
[2021-12-06] MEDS ORDERED: fentaNYL 100 MCG/2 ML INJECTION As Ordered ONE ×2 (21:25→21:26)
[2021-12-06] MEDS ORDERED: dexameTHASONE 4 MG/ML 1ML VIAL (J1100 PER 1MG) As Ordered ONE (21:30)
[2021-12-06] MEDS ORDERED: ACETAMINOPHEN 1000MG 100ML IV BTL (OFIRMEV) (J0131 PER 10MG) As Ordered ONE (21:33)
[2021-12-06] MEDS ORDERED: SUGAMMADEX SODIUM 500 MG/5 ML VIAL (BRIDION) As Ordered ONE (21:40)
[2021-12-06] MEDS ORDERED: KETOROLAC 60MG 2ML VIAL As Ordered ONE (21:51)
[2021-12-06] MEDS ORDERED: MORPHINE 2 MG/ML 1ML VIAL IV PRN (22:20)
[2021-12-06] MEDS ORDERED: fentaNYL 100 MCG/2 ML INJECTION IV PRN (22:20)
[2021-12-06] MEDS ORDERED: traMADol 50 MG TAB PO ONE (22:30)
[2021-12-06 23:25] VITALS: BP 134/63
[2021-12-06 23:55] VITALS: BP 136/75
[2021-12-07] VITALS (8 sets, daily range): BP systolic 130–144; BP diastolic 58–89
[2021-12-07] MEDS ORDERED: PENICILLIN G POTASSIUM IV 2.5 MU in IV 1 EA IV SCH (00:20)
[2021-12-07] MEDS: MORPHINE 2 MG/ML 1ML VIAL IV ONE ×2 (00:41→04:18)
[2021-12-07] MEDS ORDERED: ACETAMINOPH W/CODEINE #3 TAB UD PO PRN (01:05)
[2021-12-07] MEDS ORDERED: ACETAMINOPHEN 500 MG TAB PO SCH (04:00)
[2021-12-07] MEDS: KETOROLAC 30 MG/ML 1ML VIAL IV SCH ×3 (04:56→17:25)
[2021-12-07] MEDS: ceFAZolin SOD 2 GM in IV 1 EA IV SCH ×3 (05:03→21:00)
[2021-12-07] MEDS: ACETAMINOPH W/CODEINE #3 TAB UD PO PRN ×2 (06:24→13:36)
[2021-12-07 07:34] LABS: HEMATOCRIT 33.3 % (36.0-47.0); HEMOGLOBIN 9.9 g/dl (12.0-15.5); MEAN CORPUSCULAR HEMOGLOBIN 28.2 pg (27.0-33.0); MEAN CORPUSCULAR HGB CONC 29.7 g/dl (32.0-36.5); MEAN CORPUSCULAR VOLUME 94.9 fl (80.0-96.0); PLATELET COUNT, AUTOMATED 320 10^3/uL (150-450); RED BLOOD COUNT 3.51 10^6/uL (4.00-5.40); WHITE BLOOD COUNT 29.5 10^3/uL (4.0-10.0)
[2021-12-07] MEDS: HumuLIN R (REGULAR) INSULIN (NovoLIN R) **100U/ML** PER UNIT SC SCH ×2 (10:03→18:11)
[2021-12-07] MEDS: HumuLIN N INSULIN (NovoLIN N) PER UNIT SC SCH ×2 (10:04→18:18)
[2021-12-07] MEDS: DOCUSATE SODIUM 100MG CAPSULE PO SCH ×2 (10:05→21:19)
[2021-12-07] MEDS: PRENATAL VITAMINS CHEWABLE TABLET PO SCH (10:05)
[2021-12-07] MEDS: LABETALOL 200 MG TAB PO SCH ×2 (10:06→21:22)
[2021-12-07] MEDS: LR 1,000 ML IV SCH ×3 (10:08→12:20)
[2021-12-07] MEDS ORDERED: METHYLERGONOVINE MALEATE 0.2 MG/ML VIAL (J2210) ONE (11:23)
[2021-12-07] MEDS ORDERED: OXYTOCIN 30 UNITS IN 0.9% NaCl 500ML IV BAG (J2590) ONE (11:23)
[2021-12-07] MEDS ORDERED: TRANEXAMIC ACID 100 MG/ML 10ML VIAL ONE (11:23)
[2021-12-07] MEDS: ENOXAPARIN 30MG/0.3ML SYRINGE (J1650 PER 10MG) SC SCH (21:19)
[2021-12-07] MEDS ORDERED: DEXTROSE 50% 50 ML SYRINGE IV PRN (22:20)
[2021-12-07] MEDS ORDERED: GLUCOSE 4GM CHEW TABLET PO PRN (22:20)
[2021-12-07] MEDS ORDERED: GLUCAGON INJ 1MG VIAL SC PRN (22:20)
[2021-12-08] MEDS: IBUPROFEN 600MG TAB PO SCH ×3 (00:44→12:21)
[2021-12-08 02:00] VITALS: BP 132/54
[2021-12-08] MEDS: ceFAZolin SOD 2 GM in IV 1 EA IV SCH ×2 (05:00→13:29)
[2021-12-08 06:00] VITALS: BP 124/66
[2021-12-08] MEDS ORDERED: ACET-716 PO (07:30)
[2021-12-08] MEDS ORDERED: IBUP-1022 PO (07:30)
[2021-12-08] MEDS ORDERED: COLA100C5 PO (07:30)
[2021-12-08] MEDS: INSULIN LISPRO (NovoLOG) PER UNIT SC SCH ×2 (08:19→12:00)
[2021-12-08] MEDS: HumuLIN R (REGULAR) INSULIN (NovoLIN R) **100U/ML** PER UNIT SC SCH (08:21)
[2021-12-08] MEDS: HumuLIN N INSULIN (NovoLIN N) PER UNIT SC SCH (08:23)
[2021-12-08] MEDS: ENOXAPARIN 30MG/0.3ML SYRINGE (J1650 PER 10MG) SC SCH (08:25)
[2021-12-08] MEDS: DOCUSATE SODIUM 100MG CAPSULE PO SCH (08:25)
[2021-12-08] MEDS: PRENATAL VITAMINS CHEWABLE TABLET PO SCH (08:25)
[2021-12-08 08:27] VITALS: BP 132/60
[2021-12-08] MEDS: LABETALOL 200 MG TAB PO SCH (08:27)
[2021-12-08 10:00] VITALS: BP 139/59
[2021-12-08 14:00] VITALS: BP 136/68
== END 2021-12-08 16:35 | disposition home or self-care (01) | DRG 771 ==
LOC: M LDO 20:02 → M LDI 20:19 → M OBS 23:05
PROVIDERS: ADMIT Advanced Practice Midwife; ATTEND Obstetrics & Gynecology
PROC: 10D00Z1 Extraction of Products of Conception, Low, Open Approach (ICD-10-PCS; principal; 2021-12-06 22:15)
DX: O60.12X0 Preterm labor second trimester with preterm delivery second trimester, not applicable or unspecified (principal); O24.12 Pre-existing type 2 diabetes mellitus, in childbirth; O10.02 Pre-existing essential hypertension complicating childbirth; O99.354 Diseases of the nervous system complicating childbirth; K21.9 Gastro-esophageal reflux disease without esophagitis; E28.2 Polycystic ovarian syndrome; F90.9 Attention-deficit hyperactivity disorder, unspecified type; F41.9 Anxiety disorder, unspecified; F32.A Depression, unspecified; L65.9 Nonscarring hair loss, unspecified; G40.909 Epilepsy, unspecified, not intractable, without status epilepticus; G89.29 Other chronic pain; O99.284 Endocrine, nutritional and metabolic diseases complicating childbirth; O99.344 Other mental disorders complicating childbirth; O99.62 Diseases of the digestive system complicating childbirth; O99.72 Diseases of the skin and subcutaneous tissue complicating childbirth; Z3A.27 27 weeks gestation of pregnancy; O32.8XX0 Maternal care for other malpresentation of fetus, not applicable or unspecified; Z79.4 Long term (current) use of insulin; Z79.899 Other long term (current) drug therapy; E66.9 Obesity, unspecified; O99.214 Obesity complicating childbirth; Z37.0 Single live birth

== ENCOUNTER → 2022-01-17 | Outpatient (REF) | payer OTHER ==
[~2022-01-17] MED LIST changes: +ACET-716 PO
== END ==
LOC: M SFHCWAGY 13:03
PROVIDERS: ATTEND Obstetrics & Gynecology
DX: N76.0 Acute vaginitis (principal)

== ENCOUNTER → 2022-07-04 | Outpatient (REF) | payer OTHER ==
[2022-07-04 14:46] LABS: BLOOD UREA NITROGEN 11 MG/DL (9-23); CALCIUM LEVEL 9.4 MG/DL (8.5-10.1); CARBON DIOXIDE LEVEL 26 MMOL/L (20-31); CHLORIDE LEVEL 103 MMOL/L (98-107); CREATININE FOR GFR 0.62 MG/DL (0.55-1.30); GLOMERULAR FILTRATION RATE > 60.0 (>60); GLUCOSE, FASTING 134 MG/DL (60-100); POTASSIUM SERUM 4.5 MMOL/L (3.5-5.1); SODIUM LEVEL 138 MMOL/L (136-145)
[2022-07-04 14:48] LABS: FREE T4 1.06 NG/DL (0.89-1.76); THYROID STIMULATING HORMONE 4.798 uIU/ML (0.55-4.78)
[2022-07-11 06:08] LABS: DEHYDROEPIANDROSTERONE UNCONJ 135 ng/dL (31-701); TESTOSTERONE FREE (DIRECT) 3.4 pg/mL (0.0-4.2)
== END ==
LOC: M SFHCADAM 11:18
PROVIDERS: ATTEND Nurse Practitioner Family
DX: L65.8 Other specified nonscarring hair loss (principal)
CPT/HCPCS: 80048; 82626; 84402; 84403; 84439; 84443; G0463

== ENCOUNTER → 2022-10-18 | Outpatient (REF) | payer OTHER | LOC: M LAB REF 16:20 | PROVIDERS: ATTEND Nurse Practitioner Family | DX: R30.0 Dysuria (principal) ==

== ENCOUNTER → 2023-01-09 | Outpatient (REF) | payer OTHER ==
[~2023-01-09] MED LIST changes: -PROG200C22 PV; +PROG200C32 PV
== END ==
LOC: M LAB REF 16:32
PROVIDERS: ATTEND Nurse Practitioner Family
DX: R30.0 Dysuria (principal)

== ENCOUNTER → 2023-01-13 | Outpatient (CLI) | payer OTHER ==
[2023-01-13 12:05] LABS: BASO # 0.1 10^3/uL (0.0-0.2); BASO % 0.8 % (0.0-1.0); EOS # 0.2 10^3/uL (0.0-0.5); EOS % 1.6 % (0.0-3.0); HEMATOCRIT 40.8 % (36.0-47.0); HEMOGLOBIN 13.5 g/dl (12.0-15.5); LYMPH # 3.1 10^3/uL (1.5-5.0); LYMPH % 30.4 % (24.0-44.0); MEAN CORPUSCULAR HEMOGLOBIN 28.5 pg (27.0-33.0); MEAN CORPUSCULAR HGB CONC 33.1 g/dl (32.0-36.5); MEAN CORPUSCULAR VOLUME 86.3 fl (80.0-96.0); MONO # 0.7 10^3/uL (0.0-0.8); MONO % 6.4 % (2.0-8.0); NEUTROPHILS # 6.1 10^3/uL (1.5-8.5); NEUTROPHILS % 60.2 % (36.0-66.0); PLATELET COUNT, AUTOMATED 317 10^3/uL (150-450); RED BLOOD COUNT 4.73 10^6/uL (4.00-5.40); WHITE BLOOD COUNT 10.1 10^3/uL (4.0-10.0)
[2023-01-13 12:27] LABS: LIPASE 39 U/L (12-53)
[2023-01-13 12:29] LABS: ALBUMIN 3.5 G/DL (3.2-5.2); ALKALINE PHOSPHATASE 92 U/L (46-116); ALT/SGPT 77 U/L (7.0-40); AST/SGOT 87 U/L (<34); BILIRUBIN,TOTAL 0.7 MG/DL (0.3-1.2); BLOOD UREA NITROGEN 10 MG/DL (9-23); CALCIUM LEVEL 8.8 MG/DL (8.5-10.1); CARBON DIOXIDE LEVEL 26 MMOL/L (20-31); CHLORIDE LEVEL 104 MMOL/L (98-107); CREATININE FOR GFR 0.53 MG/DL (0.55-1.30); GLOMERULAR FILTRATION RATE > 60.0 (>60); GLUCOSE, FASTING 180 MG/DL (60-100); POTASSIUM SERUM 4.3 MMOL/L (3.5-5.1); SODIUM LEVEL 138 MMOL/L (136-145)
== END ==
LOC: M LAB 11:34
PROVIDERS: ATTEND Student in an Organized Health Care Education/Training Program
DX: R10.84 Generalized abdominal pain (principal)

== ENCOUNTER → 2024-04-07 | Outpatient (REF) | payer OTHER ==
[~2024-04-07] MED LIST changes: +ONDA-282 PO; -ONDA4TAB6 PO
[2024-04-07 18:11] LABS: Trichomonas vaginalis (AMP) NOT DETECTED (NEGATIVE)
[2024-04-07 18:35] LABS: GC DNA AMPLIFICATION NEGATIVE (NEGATIVE)
[2024-04-07 18:41] LABS: HEMOGLOBIN A1c 9.2 % (4.0-6.0)
[2024-04-07 18:43] LABS: ALBUMIN 3.6 G/DL (3.2-5.2); ALKALINE PHOSPHATASE 104 U/L (35-104); ALT/SGPT 81 U/L (7.0-40); AST/SGOT 77 U/L (<34); BILIRUBIN,TOTAL 0.4 MG/DL (0.3-1.2); BLOOD UREA NITROGEN 11 MG/DL (9-23); CALCIUM LEVEL 9.7 MG/DL (8.5-10.1); CARBON DIOXIDE LEVEL 24 MMOL/L (20-31); CHLORIDE LEVEL 102 MMOL/L (98-107); CHOLESTEROL LEVEL 205 MG/DL (<200); CHOLESTEROL RISK RATIO 5.28 (<5); CREATININE FOR GFR 0.49 MG/DL (0.55-1.30); GLOMERULAR FILTRATION RATE > 60.0 (>60); GLUCOSE, FASTING 236 MG/DL (60-100); HDL CHOLESTEROL 38.8 MG/DL (>40); LDL CHOLESTEROL 105.2 MG/DL (<100); NON-HDL-C 166.2 MG/DL; POTASSIUM SERUM 4.4 MMOL/L (3.5-5.1); SODIUM LEVEL 135 MMOL/L (136-145); TOTAL PROTEIN 7.8 G/DL (5.7-8.2); TRIGLYCERIDES LEVEL 305 MG/DL (<150)
[2024-04-07 18:45] LABS: THYROID STIMULATING HORMONE 3.764 uIU/ML (0.55-4.78)
[2024-04-07 18:56] LABS: HCG, SERUM QUALITATIVE NEGATIVE (NEGATIVE)
== END ==
LOC: M LAB REF 16:19
PROVIDERS: ATTEND Physician Assistant
DX: Z11.9 Encounter for screening for infectious and parasitic diseases, unspecified (principal); R30.0 Dysuria; N92.5 Other specified irregular menstruation; E66.9 Obesity, unspecified; E55.9 Vitamin D deficiency, unspecified

== ENCOUNTER 2024-08-18 12:43 | Emergency (ER) | payer OTHER ==
[~2024-08-18] VITALS: Ht 167.6 cm; Wt 110.9 kg
[2024-08-18] MEDS ORDERED: CETI-24 (12:52)
[2024-08-18] MEDS ORDERED: KLON0.5T8 (12:52)
[2024-08-18] MEDS ORDERED: PRAZ1CAP (12:52)
[2024-08-18] MEDS ORDERED: PIOG1TAB36 (12:52)
[2024-08-18] MEDS ORDERED: SEMA0.257 SQ (12:52)
[2024-08-18] MEDS ORDERED: FLUTISP (12:52)
[2024-08-18] MEDS ORDERED: FLUO40CA (12:52)
[2024-08-18] MEDS ORDERED: NAPR-1405 PO (17:33)
[2024-08-18 17:37] VITALS: BP 150/79; TEMP 97; O2SAT 99
== END 2024-08-18 17:48 | disposition home or self-care (01) ==
LOC: M ED 12:43
DX: S16.1XXA Strain of muscle, fascia and tendon at neck level, initial encounter (principal); E04.1 Nontoxic single thyroid nodule; Y04.0XXA Assault by unarmed brawl or fight, initial encounter; K21.9 Gastro-esophageal reflux disease without esophagitis; M25.78 Osteophyte, vertebrae; F41.1 Generalized anxiety disorder; E28.2 Polycystic ovarian syndrome; E11.9 Type 2 diabetes mellitus without complications; Z79.899 Other long term (current) drug therapy; Z88.1 Allergy status to other antibiotic agents; Z88.5 Allergy status to narcotic agent; Z88.8 Allergy status to other drugs, medicaments and biological substances; Y92.9 Unspecified place or not applicable; Y93.89 Activity, other specified; Y99.9 Unspecified external cause status